=== PATIENT | male | born 2000 ===

== ENCOUNTER 2023-08-24 14:32 | Emergency (ER) | payer OTHER ==
[~2023-08-24] VITALS: Ht 182.9 cm; Wt 81.7 kg
[2023-08-24] MEDS ORDERED: IBUP800 PO (14:43)
[2023-08-24] MEDS ORDERED: Ibuprofen 400 MG Tab PO ONE (14:45)
== END 2023-08-24 15:00 | disposition home or self-care (01) ==
LOC: ER 14:32
DX: S13.9XXA Sprain of joints and ligaments of unspecified parts of neck, initial encounter (principal); S16.1XXA Strain of muscle, fascia and tendon at neck level, initial encounter; V43.52XA Car driver injured in collision with other type car in traffic accident, initial encounter
CPT/HCPCS: 99284; A9270

== ENCOUNTER 2024-04-03 20:52 | Emergency (ER) | payer BC ==
[~2024-04-03] VITALS: Ht 182.9 cm; Wt 94.3 kg
[~2024-04-03 20:52] MED LIST: IBUP800 PO
== END 2024-04-03 21:34 | disposition home or self-care (01) ==
LOC: ER 20:52
DX: L27.0 Generalized skin eruption due to drugs and medicaments taken internally (principal); T50.A95A Adverse effect of other bacterial vaccines, initial encounter
CPT/HCPCS: 99282